=== PATIENT | female | born 1990 | race Caucasian/White ===

== ENCOUNTER 2018-04-13 07:08 | Inpatient (IN) | payer BC ==
[~2018-04-13] VITALS: Ht 165.1 cm; Wt 78.2 kg
[2018-04-13] VITALS (12 sets, daily range): BP systolic 103–119; BP diastolic 58–78; PULSE 71–117; TEMP 97.5–98.4
[~2018-04-13 07:08] MED LIST: MOTRIN 600600 MG/TAB PO; PERCOCET 325 MG1 TA2 PO; PRENATAL
[2018-04-13] MEDS ORDERED: CONCEPT DHA1 CAP PO (07:56)
[2018-04-13] MEDS ORDERED: CALCIUM 600MG+D1 TAB PO (07:57)
[2018-04-13 08:55] LABS: HEMATOCRIT 41.5 % (37.0-47.0); HEMOGLOBIN 14.2 g/dl (12.5-16.0); MEAN CELL VOLUME 95 fl (80.0-100.0); MEAN CORPUSCULAR HEMOGLOBIN 33 pg (27.0-31.0); MEAN CORPUSCULAR HGB CONC 34 g/dl (33.0-37.0); MEAN PLATELET VOLUME 9.7 fl (7.4-10.4); PLATELET COUNT 273 K/mm3 (130-400); RED BLOOD COUNT 4.35 M/mm3 (4.10-5.30); REDCELL DISTRIBUTION WIDTH-CV 12.5 % (11.5-14.5)
[2018-04-13 09:15] LABS: BAND 40 % (0-10); NEUTROPHILS 58 % (42.0-75.2); PLATELET ESTIMATE NORMAL (NORMAL)
[2018-04-14 00:30] VITALS: BP 111/70; PULSE 104; TEMP 97.8
[2018-04-14 03:30] VITALS: BP 110/70; PULSE 71; TEMP 98.7
[2018-04-14 08:00] VITALS: BP 106/80; PULSE 98; TEMP 97.9
[2018-04-14 15:30] VITALS: BP 126/73; PULSE 74; TEMP 98.7
[2018-04-14] MEDS ORDERED: PERCOCET 325 MG1 TA2 PO (16:10)
[2018-04-14] MEDS ORDERED: MOTRIN 600600 MG/TAB PO (16:10)
[2018-04-14 18:45] VITALS: BP 113/84; PULSE 80; TEMP 98.6
[2018-04-15 08:00] VITALS: BP 124/79; PULSE 76; TEMP 98.1
== END 2018-04-15 10:50 | disposition home or self-care (01) | DRG 775 ==
LOC: LDRO 07:08 → LDR 07:20 → OB 10:30
PROVIDERS: Obstetrics & Gynecology
PROC: 10E0XZZ Delivery of Products of Conception, External Approach (ICD-10-PCS; principal; 2018-04-13)
PROC: 0KQM0ZZ Repair Perineum Muscle, Open Approach (ICD-10-PCS; 2018-04-13)
DX: O99.824 Streptococcus B carrier state complicating childbirth (principal); Z3A.40 40 weeks gestation of pregnancy; Z37.0 Single live birth; O62.3 Precipitate labor; O70.1 Second degree perineal laceration during delivery; O69.81X0 Labor and delivery complicated by cord around neck, without compression, not applicable or unspecified
CPT/HCPCS: J2590

== ENCOUNTER 2020-09-24 07:47 | Inpatient (IN) | payer BC ==
[~2020-09-24] VITALS: Ht 165.1 cm; Wt 84.5 kg
[2020-09-24] VITALS (15 sets, daily range): BP systolic 105–128; BP diastolic 58–77; PULSE 68–105; TEMP 98.1–98.5
[~2020-09-24 07:47] MED LIST changes: +CALCIUM 600MG+D1 TAB PO; +CONCEPT DHA1 CAP PO
--- NOTE | 2020-09-24 08:00 | NUR ---
Patient ambulatory onto unit with at side for labor check. Patient oriented to room, changes into gown, plan of care discussed. Patient reports good movement and contractions since 0300. Denies vaginal bleeding or leaking of fluid. EFMs on. VS taken. SVE /-2. Assessment completed. notified.
[2020-09-24] MEDS ORDERED: PROBIOTIC BLEN1 EACH PO (08:26)
[2020-09-24] MEDS ORDERED: VITAMIND3 5000 PO (08:27)
[2020-09-24] MEDS ORDERED: CALCIUM 600MG+D1 TAB PO (08:27)
--- NOTE | 2020-09-24 09:00 | NUR ---
Report to Caroline SMITH to assume care of patient at this time.
[2020-09-24 09:25] LABS: BASO % 0.2 % (0.0-2.0); EOS % 0.2 % (0-4.0); GRAN # 8.9 (1.4-6.5); GRAN % 83.2 % (42.2-75.2); HEMATOCRIT 40.5 % (37.0-47.0); HEMOGLOBIN 13.8 g/dl (12.5-16.0); LYMPH # 0.9 (1.2-3.4); LYMPH % 8.7 % (20.0-51.0); MEAN CELL VOLUME 101 fl (80.0-100.0); MEAN CORPUSCULAR HEMOGLOBIN 34 pg (27.0-31.0); MEAN CORPUSCULAR HGB CONC 34 g/dl (33.0-37.0); MEAN PLATELET VOLUME 9.8 fl (7.4-10.4); MONO # 0.8 (0.1-0.6); MONO % 7.2 % (1.7-9.3); PLATELET COUNT 256 K/mm3 (130-400); RED BLOOD COUNT 4.02 M/mm3 (4.10-5.30); REDCELL DISTRIBUTION WIDTH-CV 12.7 % (11.5-14.5)
--- NOTE | 2020-09-24 09:45 | NUR ---
PT REPORTS CONTRACTIONS HAVE DEFINITELY SPACED OUT. FIRST DOSE OF PEN G INFUSED. IV TO INT AND PT TAKEN OFF MONITOR PER HER REQUEST TO WALK AROUND.
--- NOTE | 2020-09-24 11:30 | NUR ---
PT AMBULATING IN HALLS. DOPPLER FHT'S 130. PT REPORTS CONTRACTIONS ARE STRONGER AND MORE REGULAR AND SHE IS TIMING THEM.
--- NOTE | 2020-09-24 12:30 | NUR ---
DR CARPENTER IN AT 1206. SVE /-2. DR CARPENTRE DISCUSSES AROM VS PITOCIN AUGMENTATION. PT DENIES BOTH AT THIS TIME. WANTS TO LABOR ON HER OWN FOR AWHILE LONGER BEFORE SHE HAS ANY INTERVENTIONS. PT OFF MONITOR AT 1230 TO AMBULATE IN HALLS.
--- NOTE | 2020-09-24 13:00 | NUR ---
PT WALKING IN ROOM. 1253 CALLS OUT REPORTING CONTRACTIONS ARE NOW EVERY 2-3 MINUTES. 1256 CALLS AGAIN SAYING SHE FEELS LIKE SHE IS PUSHING. SVE AT 1258 WITH COMPLETE DILATION AND BULGING BAG OF FLUID. DR ELLINGTON HERE IN THE HOSPITAL AND IN AT 1258. DR CARPENTER CALLED TO COME AT 1258. OF FEMALE AT 1300.
--- NOTE | 2020-09-24 13:10 | NUR ---
DR CARPENTER IN AT 1305 AFTER DELIVERY OF PLACENTA AT 1305. PITOCIN STARTED AT 333ML/HR AFTER DELIVERY OF PLACENTA. FUNDAL MASSAGE PERFORMED WITH MODERATE BLEEDING AFTER DELIVERY OF PLACENTA AND FUNDUS FIRMS WITH MASSAGE. PERINEUM INTACT. PERICARE PERFORMED AND ICE PACK IN PLACE. PT HOLDING BABY.
--- NOTE | 2020-09-24 14:40 | NUR ---
FUNDUS FIRM WITH MINIMAL BLEEDING OBSERVED. NEW CHUX PAD AND PERIPAD IN PLACE. JUST ORDERED SOME FOOD AND WILL WANT TO MOVE TO HER ROOM AFTER SHE EATS.
--- NOTE | 2020-09-24 15:00 | NUR ---
UP TO BATHROOM. UNABLE TO VOID AT THIS TIME. FUNDUS FIRM WITH MINIMAL BLEEDING. NEW GOWN, SPENCER PAD, AND UNDERWEAR IN PLACE.
[2020-09-25 00:05] VITALS: BP 126/84; PULSE 68; TEMP 98
[2020-09-25 05:30] VITALS: BP 133/83; PULSE 62; TEMP 97.7
[2020-09-25 07:30] VITALS: BP 109/77; PULSE 75; TEMP 97.5
--- NOTE | 2020-09-25 09:26 | NUR ---
Initial visit; (Patient indisposed), Dad thanked Edi Programmer Analyst for offering congratulations and God's blessings for the of their daughter. Edi Programmer Analyst thanked family for choosing [facility].
[2020-09-25 12:00] VITALS: BP 105/74; PULSE 74
[2020-09-25 16:38] VITALS: BP 119/70; PULSE 76; TEMP 98.5
--- NOTE | 2020-09-25 18:35 | NUR ---
Report recieved. Sitting in bed eating at this time. Updated whiteboard and reviewed POC. Denied questions/concerns.
[2020-09-25 19:30] VITALS: BP 106/75; PULSE 74; TEMP 97.5
[2020-09-26] MEDS ORDERED: IBU800 M1 PO (08:06)
[2020-09-26 08:57] VITALS: BP 117/73; PULSE 86; TEMP 98.7
== END 2020-09-26 11:15 | disposition home or self-care (01) | DRG 807 ==
LOC: LDRO 07:47 → EDSTATUS 09:12 → LDR 09:14 → OB 15:36
PROVIDERS: ADMIT Student in an Organized Health Care Education/Training Program
PROC: 10E0XZZ Delivery of Products of Conception, External Approach (ICD-10-PCS; principal; 2020-09-24)
DX: O48.0 Post-term pregnancy (principal); Z37.0 Single live birth; O99.824 Streptococcus B carrier state complicating childbirth; O69.81X0 Labor and delivery complicated by cord around neck, without compression, not applicable or unspecified; Z3A.41 41 weeks gestation of pregnancy
CPT/HCPCS: J2540; J2590; J7120